=== PATIENT | male | born 1950 | race Caucasian/White ===

== ENCOUNTER 2016-07-14 16:03 | Outpatient (CLI) | payer MEDICARE, BC ==
[~2016-07-14 16:03] MED LIST: ASPIRIN81 MG ORAL; BIOTIN10 MG PO; CLARITIN10 M2 ORAL; GLUCOSAMINE1000 M1 PO; MULTIVITAMINS1 EAC2 ORAL; VASOTEC10 MG ORAL; VITAMIN C100 M1 PO; VITAMIN D1000 UNI1 ORAL
--- NOTE | 2016-07-14 16:28 | Diagnostic Imaging Report ---
Indication: Dyspnea Comparison: None 2 views of the chest obtained. Findings: Cardiomediastinal silhouette and pulmonary vascularity are within normal limits for age. The diaphragmatic contour is smooth and costophrenic angles are sharp. No pleural effusions are identified. The bones are osteopenic. Impression: No acute disease
== END 2016-07-14 18:03 | disposition home or self-care (01) ==
LOC: RAD 16:03
DX: R05 Cough (principal); M85.80 Other specified disorders of bone density and structure, unspecified site
CPT/HCPCS: 71020